=== PATIENT | female | born 1990 | race Caucasian/White ===

== ENCOUNTER 2017-12-04 10:12 | Emergency (ER) | payer MEDICAID, OTHER, SELFPAY ==
[~2017-12-04] VITALS: Ht 157.5 cm; Wt 52.3 kg
[~2017-12-04 10:12] MED LIST: ONDA4 PO; PREN-64 PO
[2017-12-04 10:15] VITALS: BP 120/81
[2017-12-04] MEDS ORDERED: DEPOP150I IM (10:19)
[2017-12-04] MEDS ORDERED: IBUP-2071 PO (10:19)
[2017-12-04] MEDS ORDERED: BENZ-51 PO (10:19)
[2017-12-04] MEDS ORDERED: DEXAMETHASONE SOD PHOS 4 MG/ML 5 ML VIAL IM ONE (11:00)
[2017-12-04] MEDS ORDERED: KETOROLAC TROMETHAMINE 60 MG/2 ML VIAL IM ONE (11:00)
[2017-12-04 11:13] LABS: BASOPHILS % (AUTO) 0.1 % (0.0-2.0); EOSINOPHILS % (AUTO) 0 % (1.0-6.0); HEMATOCRIT 37.3 % (36-46); HEMOGLOBIN 12.6 g/dL (12.0-16.0); LYMPHOCYTES # (AUTO) 0.9 K/uL (1.0-4.8); LYMPHOCYTES % (AUTO) 8.2 % (22.0-44.0); MEAN CORPUSCULAR HGB CONC 33.7 G/dL (31.0-37.0); MEAN CORPUSCULAR VOLUME 83 fL (80-100); MONOCYTES # (AUTO) 0.1 K/uL (0.1-1.0); MONOCYTES % (AUTO) 1.1 % (2.0-9.0); NEUTROPHILS # (AUTO) 9.8 K/uL (1.8-7.7); PLATELET COUNT (AUTO) 221 K/uL (150-450); RED CELL DISTRIBUTION WIDTH 13.5 % (11.5-14.5)
[2017-12-04 11:19] LABS: NEUTROPHILS % (AUTO) 90.6 % (40.0-70.0)
== END 2017-12-04 12:24 | disposition home or self-care (01) ==
LOC: EMS 10:14
DX: S29.011A Strain of muscle and tendon of front wall of thorax, initial encounter (principal); Z88.5 Allergy status to narcotic agent; X58.XXXA Exposure to other specified factors, initial encounter; Y93.89 Activity, other specified; Y92.89 Other specified places as the place of occurrence of the external cause; Y99.8 Other external cause status
CPT/HCPCS: 36415; 71046; 84703; 85025; 96372; 99285; J1100; J1885

== ENCOUNTER 2018-10-15 14:09 | Emergency (ER) | payer OTHER ==
[~2018-10-15] VITALS: Ht 157.5 cm; Wt 56.8 kg
[~2018-10-15 14:09] MED LIST changes: +BENZ-51 PO; +DEPOP150I IM; +IBUP-2071 PO; -ONDA4 PO; -PREN-64 PO
[2018-10-15] MEDS ORDERED: KETOROLAC TROMETHAMINE 30 MG/ML VIAL IM ONE (15:00)
[2018-10-15] MEDS ORDERED: ACETAMINOPHEN 500 MG TABLET PO ONE (15:00)
[2018-10-15] MEDS ORDERED: ONDANSETRON HCL 4 MG/2 ML VIAL IM ONE (15:00)
[2018-10-15 15:51] LABS: APPEARANCE,URINE CLEAR (CLEAR); BILIRUBIN,URINE NEGATIVE (NEGATIVE); GLUCOSE, URINE (UA) NEGATIVE (NEGATIVE); KETONES,URINE NEGATIVE (NEGATIVE); LEUKOCYTE ESTERASE ,URINE TRACE (NEGATIVE); NITRATE,URINE NEGATIVE (NEGATIVE); OCCULT BLOOD,URINE MODERATE (NEGATIVE); PH,URINE 5.5 (5.0-8.0); PROTEIN,URINE NEGATIVE (NEGATIVE); UROBILINOGEN,URINE 0.2 mg/dL (<=1.0)
[2018-10-15 16:05] LABS: BACTERIA,URINE None Seen /HPF (None Seen); RBC,URINE 0-2 /HPF (0-2); SQUAMOUS EPITHELIAL CELL,UR Moderate /LPF (None Seen); WBC,URINE 0-2 /HPF (0-5)
[2018-10-15 16:20] LABS: RAPID GROUP A STREP NEGATIVE (NEGATIVE)
[2018-10-15 16:26] LABS: INFLUENZA TYPE A NEGATIVE FOR TYPE A (NEGATIVE); INFLUENZA TYPE B NEGATIVE FOR TYPE B (NEGATIVE)
[2018-10-15 17:00] VITALS: BP 105/65
== END 2018-10-15 17:21 | disposition home or self-care (01) ==
LOC: EMS 14:11
DX: J02.9 Acute pharyngitis, unspecified (principal); Z88.5 Allergy status to narcotic agent
CPT/HCPCS: 81001; 81002; 81025; 87430; 87804; 96372; 99283; J1885; J2405

== ENCOUNTER 2020-05-09 16:11 | Emergency (ER) | payer OTHER ==
[~2020-05-09] VITALS: Ht 167.6 cm; Wt 70.5 kg
[~2020-05-09 16:11] MED LIST changes: -BENZ-51 PO
[2020-05-09] MEDS ORDERED: ACET-2865 PO (16:13)
[2020-05-09] MEDS ORDERED: KETOROLAC TROMETHAMINE 60 MG/2 ML VIAL IM ONE (18:00)
[2020-05-09 19:15] VITALS: BP 129/77
== END 2020-05-09 20:27 | disposition home or self-care (01) ==
LOC: EMS 16:11
DX: S83.92XA Sprain of unspecified site of left knee, initial encounter (principal); Z88.5 Allergy status to narcotic agent; Z79.899 Other long term (current) drug therapy; W22.8XXA Striking against or struck by other objects, initial encounter; Y93.89 Activity, other specified; Y92.89 Other specified places as the place of occurrence of the external cause; Y99.8 Other external cause status
CPT/HCPCS: 29505; 73562; 96372; 99283; J1885